=== PATIENT | female | born 1970 | race Hispanic/Latino ===

== ENCOUNTER 2017-04-15 09:24 | Emergency (ER) | payer MEDICAID, OTHER ==
[2017-04-15 09:25] VITALS: BMI 44.9
[2017-04-15 09:35] VITALS: TEMP 97.8
--- NOTE | 2017-04-15 10:00 | ED PDOC ---
Arrival/HPI - General Chief Complaint: Back Pain Time Seen by Provider: 04/15/17 09:28 Historian: Patient - History of Present Illness Narrative History of Present Illness (Text): 04/15/17 09:57 46yo female with PMhx of chronic back pain and anxiety present with complaint of left sided back pain x 7days. States pain started after seeing a Chiropractor. States it felt like something shifted, when she saw the Chiropractor. States pain is deep within her back, constant, achy , worse with movement. States she sees a pain management. She took Nebumentone this morning without relieve. Back pain is secondary to herniated disc x years. States she have had back pain but it's worse since 7days ago. Also reports change in the color of her urine with urinary frequency. Denies dysuria, fever, chills, nausea , vomiting, diarrhea, any other complaint. Past Medical History - Provider Review Nursing Documentation Reviewed: Yes - Past History Past History: No Previous - Cardiac Hx Cardiac Disorders: No - Pulmonary Hx Respiratory Disorders: No - Neurological Hx Neurological Disorder: No - HEENT Hx HEENT Disorder: No - Renal Hx Renal Disorder: No - Endocrine/Metabolic Hx Endocrine Disorders: No - Hematological/Oncological Hx Blood Disorders: No - Integumentary Hx Dermatological Disorder: No - Musculoskeletal/Rheumatological Hx Musculoskeletal Disorders: Yes Hx Back Pain: Yes - Gastrointestinal Hx Gastrointestinal Disorders: No - Genitourinary/Gynecological Hx Genitourinary Disorders: No - Psychiatric Hx Psychophysiologic Disorder: No Hx Depression: No Hx Emotional Abuse: No Hx Physical Abuse: No Hx Substance Use: No - Surgical History Hx Cholecystectomy: Yes Hx Hysterectomy: Yes Hx Tubal Ligation: Yes - Anesthesia Hx Anesthesia: Yes Hx Anesthesia Reactions: No Hx Malignant Hyperthermia: No - Suicidal Assessment Feels Threatened In Home Enviroment: No Family/Social History - Physician Review Nursing Documentation Reviewed: Yes Family/Social History: Unknown Family HX Smoking Status: Former Smoker Hx Alcohol Use: Yes Hx Substance Use: No Hx Substance Use Treatment: No Allergies/Home Meds Allergies/Adverse Reactions: Allergies No Known Allergies Allergy (Verified 04/15/17 09:25) Home Medications: Home Meds Medication Instructions Recorded Confirmed ALPRAZolam [Xanax] 1 tab PO PRN PRN 04/15/17 04/15/17 DULoxetine [Cymbalta] 120 mg PO DAILY 04/15/17 04/15/17 Gabapentin [Neurontin] 300 mg PO DAILY 04/15/17 04/15/17 Nabumetone [Relafen] 500 mg PO DAILY 04/15/17 04/15/17 Topiramate [Topamax] 200 mg PO DAILY 04/15/17 04/15/17 Review of Systems - Physician Review All systems were reviewed & negative as marked: Yes - Review of Systems Constitutional: Normal Eyes: Normal ENT: Normal Respiratory: Normal Cardiovascular: Normal Gastrointestinal: Normal Genitourinary Female: Normal Musculoskeletal: Back Pain Skin: Normal Neurological: Normal Endocrine: Normal Hemo/Lymphatic: Normal Psychiatric: Normal Physical Exam Vital Signs Reviewed: Yes Vital Signs Temp Pulse Resp BP Pulse Ox 04/15/17 11:39 58 L 16 128/72 98 04/15/17 11:04 59 L 18 131/71 97 04/15/17 09:32 97.8 F 57 L 16 129/75 97 Temperature: Afebrile Blood Pressure: Normal Pulse: Regular Respiratory Rate: Normal Appearance: Positive for: Well-Appearing, Non-Toxic, Comfortable, Other (Obese) Pain Distress: None Mental Status: Positive for: Alert and Oriented X 3 - Systems Exam Head: Present: Atraumatic, Normocephalic Pupils: Present: PERRL Extroacular Muscles: Present: EOMI Conjunctiva: Present: Normal Mouth: Present: Moist Mucous Membranes Neck: Present: Normal Range of Motion Respiratory/Chest: Present: Clear to Auscultation, Good Air Exchange. No: Respiratory Distress, Accessory Muscle Use Cardiovascular: Present: Regular Rate and Rhythm, Normal S1, S2. No: Murmurs Abdomen: Present: Normal Bowel Sounds. No: Tenderness, Distention, Peritoneal Signs Back: No: CVA Tenderness, Midline Tenderness, Paraspinal Tenderness, Pain with Leg Raise Upper Extremity: Present: Normal Inspection. No: Cyanosis, Edema Lower Extremity: Present: Normal Inspection. No: Edema Neurological: Present: GCS=15, CN II-XII Intact, Speech Normal Skin: Present: Warm, Dry, Normal Color. No: Rashes Psychiatric: Present: Alert, Oriented x 3, Normal Insight, Normal Concentration Medical Decision Making ED Course and Treatment: 04/15/17 19:55 PT's pain improved in ED with medication. she was ambulatory and neurologically intact. She had UTI and was treated with KEflex. Result was DW the pt and she was referred to her PMD. - Lab Interpretations Lab Results: Lab Results 04/15/17 11:06: Urine Color Light yellow, Urine Appearance Sl cloudy, Urine pH 6.0, Ur Specific [place] 1.015, Urine Protein Negative, Urine Glucose (UA) Negative, Urine Ketones Negative, Urine Blood Negative, Urine Nitrate Negative, Urine Bilirubin Negative, Urine Urobilinogen 0.2, Ur Leukocyte Esterase Small H , Urine RBC Negative, Urine WBC 5 - 10, Ur Epithelial Cells 6 - 8, Urine Other Trichomonas - Medication Orders Current Medication Orders: Discontinued Medications Cephalexin Monohydrate (Keflex) 500 mg PO STAT STA PRN Reason: Protocol Stop: 04/15/17 11:22 Last Admin: 04/15/17 11:41 Dose: 500 mg Diazepam (Valium) 5 mg PO ONCE ONE PRN Reason: Protocol Stop: 04/15/17 09:52 Last Admin: 04/15/17 11:41 Dose: 5 mg Ketorolac Tromethamine (Toradol) 60 mg IM STAT STA Stop: 04/15/17 09:52 Last Admin: 04/15/17 11:40 Dose: 60 mg MAR Pain Assessment Document 04/15/17 11:40 HI (Rec[facility]15[facility]17 11[id number] Pain Reassessment Is this a pain reassessment? No Sleep Is patient sleeping during reassessment? No Presence of Pain Presence of Pain Yes Location Upper or Lower Lower Description Pain Behavior Moaning IM Administration Charges Document 04/15/17 11:40 HI (Rec: 04/15/17 11:41 [id number] Injection Site MAR Injection Site Right Gluteus Wilmar Charges for Administration # of IM Administrations 1 Disposition/Present on Arrival - Present on Arrival Any Indicators Present on Arrival: No History of DVT/PE: No History of Uncontrolled Diabetes: No Urinary Catheter: No History of Decub. Ulcer: No History Surgical Site Infection Following: None - Disposition Have Diagnosis and Disposition been Completed?: Yes Diagnosis: UTI (urinary tract infection), Back pain Disposition: HOME/ ROUTINE Disposition Time: 11:30 Patient Plan: Discharge Condition: STABLE Discharge Instructions (ExitCare): Urinary Tract Infections in Adults Additional Instructions: Follow up with your doctor Return to ED for any new or worsen symptoms Prescriptions: Cephalexin [cephalexin] 500 mg PO TID #30 cap Referrals: Delfino Bonilla DO [Primary Care Provider] - Follow up with primary Forms: [employer] ([employer])
[2017-04-15 11:15] LABS: URINE BILIRUBIN NEGATIVE (NEGATIVE); URINE BLOOD NEGATIVE (NEGATIVE); URINE GLUCOSE (UA) NEGATIVE (NEGATIVE); URINE LEUKOCYTE ESTERASE SMALL Leu/uL (NEGATIVE); URINE NITRATE NEGATIVE (NEGATIVE); URINE PROTEIN NEGATIVE mg/dL (<30 mg/dL); URINE UROBILINOGEN 0.2 E.U./dL (<1 E.U./dL)
[2017-04-15 11:17] LABS: URINE APPEARANCE SL CLOUDY (CLEAR); URINE COLOR LIGHT YELLOW (YELLOW)
[2017-04-15 11:26] LABS: URINE RBC NEGATIVE /hpf (0-2)
[2017-04-15 12:26] VITALS: BP 128/72; PULSE 58; RESP 16; O2SAT 98
== END 2017-04-15 11:39 | disposition home or self-care (01) ==
LOC: ED 09:24
DX: N39.0 Urinary tract infection, site not specified (principal); M54.9 Dorsalgia, unspecified; Z87.891 Personal history of nicotine dependence
CPT/HCPCS: 81001; 87086; 96372; 99284; J1885

== ENCOUNTER 2017-12-01 06:09 | Day surgery (SDC) | payer MEDICAID ==
[2017-11-20 11:41] VITALS: BMI 47.7
[2017-12-01] MEDS ORDERED: Bupivacaine 0.5% 50 ML IJ ONE ×2 (07:19→07:39)
[2017-12-01] MEDS ORDERED: Midazolam 2 MG/2 ML VIAL ONE (07:21)
[2017-12-01] MEDS ORDERED: Propofol 10 mg/ml Inj (20 ML) ONE ×2 (07:22→10:31)
[2017-12-01] MEDS ORDERED: Succinylcholine 200 mg/10 ml Inj IV ONE (07:28)
[2017-12-01] MEDS ORDERED: Heparin 10,000 Units/ml ONE (07:36)
--- NOTE | 2017-12-01 07:38 | CP.PCM.PN ---
Subjective - Date & Time of Evaluation Date of Evaluation: 12/01/17 Time of Evaluation: 07:36 - Subjective Subjective: Podiatry Progress note for Dr. Nolan Guillaume 47 year old female with PMH of morbid obesity was seen in [facility] for pre-operative evaluation for right chronic achilles tendonitis. NPO status confirmed. Patient is NAD and AAOx3, denies n/v/f/c/sob/cp. Objective - Vital Signs/Intake and Output Vital Signs (last 24 hours): Temp Pulse Resp BP Pulse Ox 98.5 F 78 18 127/67 98 12/01/17 06:20 12/01/17 06:20 12/01/17 06:20 12/01/17 06:20 12/01/17 06:20 - Constitutional Appears: Well, Non-toxic, No Acute Distress - Extremities Exam Additional comments: Vasc :DP and PT pulses palpable 1/4 b/l. CFT < 3 seconds to all digits b/l. Skin temperature warm to warm from proximal to distal b/l. Neuro: Gross sensation intact b/l Derm: Skin is well hydrated. No open lesions noted b/l. Ortho: Pain on palpation to right achilles tendon - Neurological Exam Neurological Exam: Alert, Awake, Oriented x3 - Psychiatric Exam Psychiatric exam: Normal Affect, Normal Mood Assessment and Plan - Assessment and Plan (Free Text) Assessment: 47 year old female with right chronic achilles tendonitis Plan: Pt was seen and examined in [facility] Pt NPO status was confirmed All Pre-op testing and clearance was in the chart Pt has exhausted all conservative treatment at this time and is opting for surgical intervention Pt was explained procedure and post-operative course All pt's questions were answered to satisfaction No guarantees were made Pt understands all risks, benefits and complications of procedure Pt will follow-up with Dr. Guillaume
[2017-12-01] MEDS ORDERED: Calcium Chloride 1000 mg/10 ml Syringe ONE (07:39)
[2017-12-01] MEDS ORDERED: Thrombin Topical 5,000 Int Units Spray Kit ONE ×2 (07:39→09:06)
[2017-12-01] MEDS ORDERED: Rocuronium 10 mg/ml (5 ml) ONE (08:40)
[2017-12-01] MEDS ORDERED: Neostigmine Methylsulfate 3mg/3ml Syringe IV ONE (09:58)
[2017-12-01] MEDS ORDERED: Esmolol 100 mg/10ml Inj IV ONE (10:31)
[2017-12-01] MEDS ORDERED: Oxycodone/Acetaminophen 10/325 mg Tab PO PRN (10:59)
[2017-12-01] MEDS ORDERED: HYDROmorphone 1 mg/ml ISec IVP PRN (11:03)
--- NOTE | 2017-12-01 11:03 | PCM.SURG1 ---
Surgeon's Initial Post Op Note - Surgeon's Notes Surgeon: dr kacy calloway Pet Groomer: dr charlie sebastian DPM pgy-3, dr joselito leach DPM pgy-1 Type of Anesthesia: General Endo, Block Regional Anesthesia Administered By: dr. costello Pre-Operative Diagnosis: right chronic achilles tendonitis, calcific tendonosis, posterior calcaeanl exostosis Operative Findings: see dictation Post-Operative Diagnosis: same Operation Performed: right partial calcaneal ostectomy, achilles tendon repair, BMA Specimen/Specimens Removed: right calcaneaus Estimated Blood Loss: EBL {In ML}: 15 Blood Products Given: N/A Drains Used: No Drains Post-Op Condition: Good Date of Surgery/Procedure: 12/01/17 Time of Surgery/Procedure: 11:03
[2017-12-01] MEDS ORDERED: Lactated Ringer's 1,000 ML IV SCH (11:15)
--- NOTE | 2017-12-01 13:48 | RAD ---
Date of service: 12/01/2017 PROCEDURE: Right Ankle Radiographs. HISTORY: s/p right achilles tendon sx COMPARISON: None FINDINGS: BONES: Normal. No fracture. JOINTS: Normal. No osteoarthritis. Ankle mortise maintained. Talar dome intact SOFT TISSUES: Normal. OTHER FINDINGS: Small orthopedic devices are seen near the Achilles insertion on the calcaneus. IMPRESSION: Negative study
--- NOTE | 2017-12-01 13:53 | RAD ---
Date of service: 12/01/2017 PROCEDURE: Fluoroscopy up to 1 hr HISTORY: RT HEEL PROCEDURE COMPARISON: TECHNIQUE: 9.7 sec of fluoro time. 0.28 mGy cumulative dose. 7 images were submitted FINDINGS: Surgical hardware is seen in the calcaneus related to Achilles tendon surgery IMPRESSION: As above
[2017-12-01 14:34] VITALS: RESP 18
[2017-12-01 18:05] VITALS: BP 116/70; PULSE 75; TEMP 98; O2SAT 97
--- NOTE | 2017-12-02 07:04 | PCM.ANESB2 ---
Popliteal Nerve Block - Popliteal Nerve Block Date of Procedure: 12/01/17 Anesthesiologist: pravin Pre-Procedure Diagnosis: r achilles tendonopathy Post-Procedure Diagnosis: same Procedure Performed: Popliteal Nerve Block Right - Procedure Popliteal Nerve Block: This procedure was explained to the patient that it is for post-operative pain management. Consent was obtained after a thorough discussion with the patient regarding the benefits and possible complications of local anesthetic block of the sciatic nerve at the popliteal level. The patient was brought to the operating room and standard monitors are applied. Time-out was held with the circulating nurse to confirm the correct surgery and the appropriate block. After applying oxygen by nasal cannula and administering IV Sedation, patient's operative leg was gently raised and supported and the groove in between the biceps femoris and vastus lateralis muscles was carefully palpated. The skin approximately 8cm above the popliteal crease was then marked. The ultrasound transducer was then applied to the posterior thigh approximately 8cm above the popliteal crease in the transverse plane and the sciatic nerve before its division was visualized lateral to the popliteal artery and in between the bicep femoris and semimembranosus/semitendinosus muscles. After identification, the lateral portion of the thigh was prepped with Betadine solution three times and Lidocaine 1% was injected subcutaneously for topical anesthesia. At this point, a # 21 gauge Stimuplex insulated 4 inch needle was inserted into pre-marked area and advanced in a perpendicular direction. The needle was inserted above the ultrasound transducer in-plane towards the sciatic nerve in a [id number] direction. Needle advancement was performed carefully under direct ultrasound visualization. Nerve stimulator was used and dorsiflexion of the _right____ foot was elicited at a current of __2.0___ MA. After repeated negative aspiration, __1___cc of _0.5____ % __bupivicaine was injected and this was flowed with ___19___ cc of __0.5____% _bupivic aine . Under ultrasound guidance the local anesthetics were observed surrounding sciatic nerve . The needle was removed intact and sterile dressing was applied. The patient tolerated the popliteal nerve block well with stable vital signs and was subsequently prepared for the surgery.
--- NOTE | 2017-12-04 02:32 | OP ---
PROCEDURE DATE: 12/01/2017 PREOPERATIVE DIAGNOSES: 1. Right chronic Achilles tendonitis with calcific tendinosis. 2. Right posterior calcaneal exostosis. POSTOPERATIVE DIAGNOSES: 1. Right chronic Achilles tendonitis with calcific tendinosis. 2. Right posterior calcaneal exostosis. PROCEDURES: 1. Right foot bone marrow aspirate. 2. Right foot partial calcaneal ostectomy. 3. Right foot Achilles tendon repair. SURGEON: Nolan Guillaume DPM SALES OPERATIONS ASSISTANT: Cyndee Da Silva DPM, PGY-3, Valeria Flores DPM, PGY-1 ANESTHESIOLOGIST: Rohit Lora MD ANESTHESIA: General anesthesia with popliteal block. INDICATIONS: Patient is a 47-year-old female with the above mentioned diagnoses. Patient was seen and treated by Dr. Guillaume in his office on outpatient basis, where she has exhausted multiple forms of conservative treatment options. Patient seeks surgical intervention at this time. All risks, benefits, and possible complications to the proposed procedure have been explained to the patient at length. The patient verbalizes understanding and wishes to proceed. All questions were answered. No guarantees were given nor implied. Consent was signed and n.p.o. status was confirmed prior to bringing the patient to the operating room. OPERATIVE PROCEDURE: The patient was brought into the operating room and placed on the operating room table in prone position. A well-padded pneumatic thigh tourniquet was applied to the patient's right thigh. Once general anesthesia was achieved, the leg was then prepped and draped in usual sterile manner and the procedure began. PROCEDURE #1: Right foot harvest bone marrow aspirate. Attention was directed to the lateral aspect of the right calcaneus, using a #18 gauge needle, placement was confirmed under fluoroscopy. Next, using a 30 mL syringe, 30 mL of bone marrow aspirate was then collected, passed off the field, and passed off the field to be used later in the procedure. PROCEDURE #2: Right foot partial calcaneal ostectomy. Attention was directed to the posterior aspect of the right heel. With the use of a #15 blade, about 8 cm in length linear incision was created on the posterior aspect of the right heel. Incision was then carried down to the subcutaneous tissue, care being taken to identify and retract all vital neurovascular structures. All bleeders were cauterized and ligated as necessary. The incision was then deepened down to the level of the Achilles tendon. At this time, with the use of #15 blade, a chevron type incision was carried on the Achilles tendon along its insertion at the retrocalcaneal and Jo deformity was palpated and identified. Then with the use of the sharp and blunt dissection, the Achilles tendon was retracted medially and laterally. At this time, the calcaneal exostosis was exposed and appeared to be large in size. With the use of osteotome and mallet, the retrocalcaneal spur was identified, excised, and passed from the surgical field. This was confirmed on fluoroscopy. Next, at this time with the use of a hand rasp and rongeur, the remnants of the calcaneal exostosis were smoothed down. The surgical site was then irrigated with copious amounts of normal sterile saline. PROCEDURE #3: Right Achilles tendon repair. Attention was then directed to the posterior aspect of the calcaneus. Using the [employer] [place] anchor system, 2 [employer] [place] anchors were introduced to the posterior aspect of the calcaneus and there were 8 strands of fiber suture. Next, the Achilles tendon was then repaired with 3 strands of suture and excellent repair was noted at this time. At this time, the ankle was then dorsiflexed to 90 degrees and all the sutures were then tied down. The surgical site was then irrigated with copious amounts of normal sterile saline. The surgical site was then closed deep with 2-0 and 3-0 Vicryl, skin was closed with 3-0 nylon and bone marrow aspirate was then injected into the tendon. Postoperative dressing included Xeroform, 4 x 4s, Davon, and a well-padded posterior splint. POSTOPERATIVE CONDITION: The patient tolerated the anesthesia and the procedure well with no apparent complications or complaints. The patient was brought from the operating room to the recovery room with vital signs stable, all neurovascular structures intact. The patient will follow up with Dr. Guillaume in office on an outpatient basis. Cyndee Da Silva DPM Nolan Guillaume DPM ALIN
== END 2017-12-01 19:00 | disposition home or self-care (01) ==
LOC: SDS 06:09
PROVIDERS: ATTEND Podiatrist
DX: M76.61 Achilles tendinitis, right leg (principal); M25.774 Osteophyte, right foot; M89.9 Disorder of bone, unspecified; E66.01 Morbid (severe) obesity due to excess calories; Z68.42 Body mass index [BMI] 45.0-49.9, adult; Z90.49 Acquired absence of other specified parts of digestive tract

== ENCOUNTER 2018-05-11 10:02 | Outpatient (CLI) | payer MEDICAID | END 2018-05-11 10:03 | disposition home or self-care (01) | LOC: RAD 10:02 | DX: Z12.31 Encounter for screening mammogram for malignant neoplasm of breast (principal); Z91.09 Other allergy status, other than to drugs and biological substances ==